=== PATIENT | male | born 1935 | race Hispanic/Latino ===

== ENCOUNTER 2021-11-18 06:34 | Emergency (ER) | payer MEDICARE ==
[~2021-11-18] VITALS: Ht 160 cm; Wt 68.0 kg
[2021-11-18 07:54] LABS: CLARITY,URINE CLEAR (CLEAR); COLOR,URINE YELLOW (YELLOW); LEUKOCYTE ESTERASE ,URINE NEGATIVE (NEGATIVE)
[2021-11-18 07:55] LABS: KETONES,URINE NEGATIVE (NEGATIVE); NITRITE,URINE NEGATIVE (NEGATIVE); PROTEIN,URINE DIPSTICK NEGATIVE (NEGATIVE); URINE UROBILINOGEN 0.2 mg/dL (0.2 - 1)
[2021-11-18 08:11] LABS: BACTERIA,URINE FEW /HPF; EPITHELIAL CELLS,URINE MODERATE /LPF; RBC,URINE 0-5 /HPF (0-5); WBC,URINE (MAN) 0-5 /HPF (0-5)
[2021-11-18 08:12] LABS: MUCUS,URINE RARE (RARE)
== END 2021-11-18 08:26 | disposition home or self-care (01) ==
LOC: ER 06:47
DX: R31.9 Hematuria, unspecified (principal); I10 Essential (primary) hypertension; E11.9 Type 2 diabetes mellitus without complications; E78.5 Hyperlipidemia, unspecified; I25.10 Atherosclerotic heart disease of native coronary artery without angina pectoris; M81.0 Age-related osteoporosis without current pathological fracture; Z95.1 Presence of aortocoronary bypass graft
CPT/HCPCS: 81001; 87086; 99282